=== PATIENT | male | born 1975 | race Caucasian/White ===

== ENCOUNTER 2021-10-22 15:58 | Inpatient (IN) ==
[2021-10-22 19:43] LABS: Basophils # 0.1 K/mcL (0.0-0.2); Basophils % 0.5 %; Eosinophils # 0.6 K/mcL (0.0-0.6); Eosinophils % 4.8 %; Hematocrit 42.5 % (37.5-50.1); Hemoglobin 14.5 g/dL (12.9-16.9); Immature Granulocytes % 0.4 % (0-4); Lymphocytes # 1.6 K/mcL (0.6-4.6); Lymphocytes % 13.8 %; Mean Corpuscular HGB Conc 34.1 g/dL (31.6-35.5); Mean Corpuscular Hemoglobin 32.8 pg (28.0-33.3); Mean Corpuscular Volume 96.2 fL (83.0-100.0); Mean Platelet Volume 10.5 fL (9.4-12.4); Monocytes # 0.7 K/mcL (0.0-1.3); Monocytes % 5.7 %; Neutrophils # 8.5 K/mcL (1.6-8.9); Platelet Count 188 K/mcL (140-400); Red Blood Count 4.42 M/mcL (4.19-5.50); Red Cell Distribution Width 13.7 % (11.5-14.5); Segmented Neutrophils % 74.8 %; White Blood Count 11.4 K/mcL (4.3-11.1)
[2021-10-22 20:09] LABS: Alanine Aminotransferase 18 Units/L (7-52); Albumin 3.4 g/dL (3.5-5.7); Alkaline Phosphatase 213 Units/L (34-104); Aspartate Amino Transferase 69 Units/L (13-39); BUN/Creatinine Ratio 5 (6-26); Bilirubin,Direct 0.3 mg/dL (0.0-0.2); Bilirubin,Indirect 0.7 mg/dL (0.0-1.0); Blood Urea Nitrogen 4 mg/dL (6-20); Calcium 9.1 mg/dL (8.6-10.3); Carbon Dioxide 28 mEq/L (23-29); Chloride 98 mEq/L (98-107); Globulin 3.3 g/dL (2.4-3.5); Glucose 144 mg/dL (70-105); Lipase 85 Units/L (11-82); Osmolality,Calculated 283 (280-300); Potassium 2.4 mEq/L (3.5-5.1); Sodium 137 mEq/L (136-145); Total Protein 6.7 g/dL (6.4-8.9); eGFR For African Americans > 60 (> 60); eGFR For Non-African Americans > 60 (> 60)
[2021-10-22] MEDS ORDERED: Pantoprazole 40 MG VIAL IVP ONE (20:27)
[2021-10-22] MEDS ORDERED: Isovue-370 500 ML BOTTLE IVP ONE (20:28)
[2021-10-22] MEDS ORDERED: 0.9 % Sodium Chloride 500 ML IV ONE (20:44)
[2021-10-22 21:20] LABS: Bilirubin,Urine Negative (Negative); Blood,Urine Negative (Negative); Clarity,Urine Clear (Clear); Color,Urine Light-Yellow (Yellow); Glucose,Urine (UA) Normal (Normal); Ketones,Urine Negative (Negative); Leukocyte Esterase,Urine Negative (Negative); Nitrite,Urine Negative (Negative); Protein,Urine Trace mg/dL (Neg-Trace); Specific Gravity,Urine 1.011 (1.010-1.025)
[2021-10-22 21:26] LABS: Amphetamine Screen,Urine Negative ng/mL (Cutoff=1000); Barbiturate Screen,Urine Negative ng/mL (Cutoff=200); Benzodiazepines Screen,Urine Negative ng/mL (Cutoff=200); Cannabinoid Screen,Urine Negative ng/mL (Cutoff = 50); Cocaine Screen,Urine Negative ng/mL (Cutoff= 300); Opiate Screen,Urine Negative ng/mL (Cutoff=300); Phencyclidine Screen,Urine Negative ng/mL (Cutoff=25)
[2021-10-22 21:52] LABS: Influenza A PCR Negative (Negative); Influenza B PCR Negative (Negative); Resp. Syncytial Virus PCR Negative (Negative)
[2021-10-22 21:58] LABS: SARS-CoV-2 by PCR (In House) Negative (Negative)
[2021-10-22] MEDS ORDERED: cefTRIAXone 1,000 MG in 0.9 % Sodium Chloride Mini Bag 100 ML IVPB ONE (22:34)
[2021-10-22] MEDS: Octreotide 400 MCG in 0.9 % Sodium Chloride 100 ML IVC SCH (23:07)
[2021-10-22 23:11] LABS: Magnesium 1.7 mg/dL (1.6-2.6)
[2021-10-23] MEDS ORDERED: Melatonin 3 MG TABLET PO PRN (00:34)
[2021-10-23] MEDS ORDERED: Naloxone 0.4 MG/ML INJ IVP PRN (00:34)
[2021-10-23] MEDS ORDERED: cefTRIAXone 1,000 MG in 0.9 % Sodium Chloride 10 ML IVP ONE (00:39)
[2021-10-23] MEDS ORDERED: *HR* LORazepam 2 MG/ML VIAL IVP PRN (01:15)
[2021-10-23 03:07] LABS: Basophils # 0.1 K/mcL (0.0-0.2); Basophils % 0.9 %; Eosinophils # 0.5 K/mcL (0.0-0.6); Eosinophils % 5.9 %; Hematocrit 38.4 % (37.5-50.1); Immature Granulocytes % 0.4 % (0-4); Lymphocytes # 1.3 K/mcL (0.6-4.6); Lymphocytes % 16.3 %; Mean Corpuscular HGB Conc 32.8 g/dL (31.6-35.5); Mean Corpuscular Hemoglobin 32.1 pg (28.0-33.3); Mean Platelet Volume 10.5 fL (9.4-12.4); Monocytes # 0.5 K/mcL (0.0-1.3); Monocytes % 6.2 %; Neutrophils # 5.6 K/mcL (1.6-8.9); Platelet Count 152 K/mcL (140-400); Red Blood Count 3.92 M/mcL (4.19-5.50); Segmented Neutrophils % 70.3 %
[2021-10-23 03:12] LABS: Hemoglobin 12.6 g/dL (12.9-16.9)
[2021-10-23 03:18] LABS: INR 1.5; Prothrombin Time 16.6 Seconds (9.4-12.1)
[2021-10-23 03:20] LABS: Activated Partial Thrombo Time 33.8 Seconds (26.0-36.0)
[2021-10-23 03:28] LABS: Alanine Aminotransferase 14 Units/L (7-52); Albumin 2.8 g/dL (3.5-5.7); Alkaline Phosphatase 182 Units/L (34-104); Aspartate Amino Transferase 55 Units/L (13-39); BUN/Creatinine Ratio 7 (6-26); Bilirubin,Total 0.9 mg/dL (0.3-1.0); Blood Urea Nitrogen 5 mg/dL (6-20); Calcium 8.2 mg/dL (8.6-10.3); Carbon Dioxide 25 mEq/L (23-29); Chloride 105 mEq/L (98-107); Globulin 2.8 g/dL (2.4-3.5); Glucose 139 mg/dL (70-105); Magnesium 1.6 mg/dL (1.6-2.6); Osmolality,Calculated 288 (280-300); Phosphorous 3.2 mg/dL (2.7-4.5); Potassium 2.9 mEq/L (3.5-5.1); Sodium 139 mEq/L (136-145); Total Protein 5.6 g/dL (6.4-8.9); eGFR For African Americans > 60 (> 60); eGFR For Non-African Americans > 60 (> 60)
[2021-10-23] MEDS ORDERED: Thiamine (B-1) 100 MG in 0.9 % Sodium Chloride 50 ML IVPB ONE (05:00)
[2021-10-23] MEDS: Pantoprazole 40 MG VIAL IVP SCH ×2 (05:31→20:17)
[2021-10-23] MEDS ORDERED: Folic Acid 1 MG in 0.9 % Sodium Chloride 50 ML IVPB ONE (06:00)
[2021-10-23] MEDS ORDERED: Potassium Phosphate 44 MEQ in 0.9 % Sodium Chloride 250 ML IVPB ONE (08:48)
[2021-10-23 09:26] LABS: Hemoglobin 13.5 g/dL (12.9-16.9)
[2021-10-23] MEDS ORDERED: Albumin 25% 25gram/100mL 25 GM/100 ML IV.SOLN IVPB ONE (11:05)
[2021-10-23] MEDS: Octreotide 400 MCG in 0.9 % Sodium Chloride 100 ML IVC SCH ×2 (13:06→20:17)
[2021-10-23] MEDS: Gabapentin 300 MG CAPSULE PO SCH ×2 (14:56→20:15)
[2021-10-23] MEDS ORDERED: SODIUM CHLORIDE/NAHCO3/KCL/PEG 4,000 ML SOLN.RECON PO ONE (17:00)
[2021-10-23] MEDS: Furosemide 40 MG/4 ML VIAL IVP SCH (17:01)
[2021-10-23 17:31] LABS: Total Protein,Peritoneal Fluid 2.4 g/dL
[2021-10-23 18:09] LABS: RBC,Peritoneal Fluid < 2000 RBC/mcL
[2021-10-23 20:24] LABS: Appearance of Peritoneal Fl CLEAR (Clear); Basophils,Peritoneal Fluid 0 %; Eosinophils,Peritoneal Fluid 0 %
[2021-10-23] MEDS ORDERED: cefTRIAXone 2,000 MG in 0.9 % Sodium Chloride 20 ML IVP SCH (22:00)
[2021-10-24] MEDS: Octreotide 400 MCG in 0.9 % Sodium Chloride 100 ML IVC SCH ×2 (00:44→09:05)
[2021-10-24] MEDS: Pantoprazole 40 MG VIAL IVP SCH (05:27)
[2021-10-24 06:27] LABS: Basophils # 0.1 K/mcL (0.0-0.2); Eosinophils # 0.6 K/mcL (0.0-0.6); Eosinophils % 8.5 %; Hematocrit 39.3 % (37.5-50.1); Hemoglobin 13.1 g/dL (12.9-16.9); Immature Granulocytes % 0.4 % (0-4); Lymphocytes # 1.4 K/mcL (0.6-4.6); Lymphocytes % 19.7 %; Mean Corpuscular HGB Conc 33.3 g/dL (31.6-35.5); Mean Corpuscular Hemoglobin 32.7 pg (28.0-33.3); Mean Platelet Volume 10.6 fL (9.4-12.4); Monocytes # 0.4 K/mcL (0.0-1.3); Monocytes % 6.2 %; Neutrophils # 4.5 K/mcL (1.6-8.9); Platelet Count 154 K/mcL (140-400); Red Blood Count 4.01 M/mcL (4.19-5.50); Red Cell Distribution Width 14.1 % (11.5-14.5); Segmented Neutrophils % 64.2 %; White Blood Count 7.1 K/mcL (4.3-11.1)
[2021-10-24 06:30] LABS: BUN/Creatinine Ratio 4 (6-26); Blood Urea Nitrogen 3 mg/dL (6-20); Carbon Dioxide 28 mEq/L (23-29); Chloride 102 mEq/L (98-107); Potassium 2.9 mEq/L (3.5-5.1); Sodium 140 mEq/L (136-145); eGFR For African Americans > 60 (> 60); eGFR For Non-African Americans > 60 (> 60)
[2021-10-24 08:53] LABS: Glucose 119 mg/dL (70-105); Osmolality,Calculated 288 (280-300)
[2021-10-24] MEDS ORDERED: Thiamine (B-1) 100 MG TABLET PO SCH (09:00)
[2021-10-24] MEDS ORDERED: Folic Acid 1 MG TABLET PO SCH (09:00)
[2021-10-24] MEDS: Furosemide 40 MG/4 ML VIAL IVP SCH (09:13)
[2021-10-24] MEDS: Gabapentin 300 MG CAPSULE PO SCH (09:14)
[2021-10-24 11:18] VITALS: TEMP 98.8; O2SAT 93
[2021-10-24 11:56] LABS: Bilirubin,Urine Negative (Negative); Blood,Urine Negative (Negative); Clarity,Urine Clear (Clear); Color,Urine Colorless (Yellow); Glucose,Urine (UA) Normal (Normal); Ketones,Urine Negative (Negative); Leukocyte Esterase,Urine Negative (Negative); Nitrite,Urine Negative (Negative); PH,Urine 6.5 pH Units (5.0-8.0); Protein,Urine Negative (Neg-Trace); Specific Gravity,Urine 1.006 (1.010-1.025); Urobilinogen,Urine Normal (Normal)
[2021-10-24] MEDS ORDERED: Potassium Phosphate 44 MEQ in 0.9 % Sodium Chloride 250 ML IVPB ONE (12:39)
[2021-10-24 12:49] VITALS: BP 116/68; PULSE 64
[2021-10-26 03:59] LABS: Fluid Source for Albumin PERITONEAL FL
== END 2021-10-24 13:30 | disposition left against medical advice (07) | DRG 254 ==
LOC: 3ANU 15:58 → EMEROOARM 15:58 → 3ANU 10-23 → SUATTDRO 10-23 00:34
PROVIDERS: ADMIT Student in an Organized Health Care Education/Training Program; ATTEND Student in an Organized Health Care Education/Training Program